=== PATIENT | male | born 1950 | race Caucasian/White ===

== ENCOUNTER 2020-06-25 15:58 | Emergency (ER) | payer MEDICARE, OTHER ==
[~2020-06-25] VITALS: Ht 190.5 cm; Wt 102.3 kg
[2020-06-25] MEDS ORDERED: AMLO-143 PO (16:40)
[2020-06-25] MEDS ORDERED: THERTAB52 PO (16:40)
[2020-06-25] MEDS ORDERED: ECOT81TA5 PO (16:40)
[2020-06-25] MEDS ORDERED: NS 500 ML IV ONE (16:55)
[2020-06-25 16:59] LABS: BASO % 0.3 % (0.0-1.0); EOS # 0.2 10^3/uL (0.0-0.5); HEMATOCRIT 39.3 % (42.0-52.0); HEMOGLOBIN 13.1 g/dl (13.5-17.5); LYMPH % 6.5 % (24.0-44.0); MEAN CORPUSCULAR HEMOGLOBIN 32.1 pg (27.0-33.0); MEAN CORPUSCULAR HGB CONC 33.3 g/dl (32.0-36.5); MEAN CORPUSCULAR VOLUME 96.3 fl (80.0-96.0); MONO # 1.6 10^3/uL (0.0-0.8); NEUTROPHILS # 12.7 10^3/uL (1.5-8.5); NEUTROPHILS % 81.6 % (36.0-66.0); PLATELET COUNT, AUTOMATED 297 10^3/uL (150-450); RED BLOOD COUNT 4.08 10^6/uL (4.30-6.10)
--- NOTE | 2020-06-25 17:12 | REP ---
INDICATION: DYSPNEA/COUGH. COMPARISON: No comparison chest x-ray. TECHNIQUE: Portable upright AP chest radiograph. FINDINGS: The lungs are symmetrically aerated and clear. The pleural angles are sharp. Heart size is borderline. The aorta is somewhat tortuous. Pulmonary vasculature is not increased. Monitoring electrodes are seen. No acute bony abnormality is seen.. IMPRESSION: No active disease. <Electronically signed by Be Foley > 06/25/20 [id number]
[2020-06-25 17:29] LABS: BLOOD UREA NITROGEN 13 MG/DL (7-18); CALCIUM LEVEL 8.7 MG/DL (8.8-10.2); CARBON DIOXIDE LEVEL 27 MEQ/L (21-32); CHLORIDE LEVEL 111 MEQ/L (98-107); CK-MB VALUE MASS 2.6 NG/ML (<3.6); CPK CREATINE PHOSPHOKINASE 201 U/L (39-308); CREATININE FOR GFR 1.06 MG/DL (0.70-1.30); GLOMERULAR FILTRATION RATE > 60.0 (>42); GLUCOSE, FASTING 109 MG/DL (70-100); MB/CK RELATIVE INDEX 1.29 (< OR =4); NT-PRO BNP 119 PG/ML (<125); SODIUM LEVEL 143 MEQ/L (136-145); TROPONIN I < 0.02 NG/ML (< 0.10)
[2020-06-25 17:37] LABS: WHITE BLOOD COUNT 15.6 10^3/uL (4.0-10.0)
[2020-06-25 18:34] VITALS: BP 146/84
--- NOTE | 2020-06-25 18:38 | REPVR ---
PROCEDURE INFORMATION: Exam: CT Head Without Contrast Exam date and time: 06/25/2020 6:00 PM Age: 69 years old Clinical indication: Syncope and collapse TECHNIQUE: Imaging protocol: Computed tomography of the head without contrast. Radiation optimization: All CT scans at this facility use at least one of these dose optimization techniques: automated exposure control; mA and/or kV adjustment per patient size (includes targeted exams where dose is matched to clinical indication); or iterative reconstruction. COMPARISON: No relevant prior studies available. FINDINGS: Brain: No acute intracranial hemorrhage, cerebral edema, or midline shift. Cerebral ventricles: No hydrocephalus. Bones/joints: No acute fracture. Paranasal sinuses: There is mild mucosal thickening noted within the paranasal sinuses. Mastoid air cells: The mastoid air cells are clear. Orbital cavity: Unremarkable as visualized. Soft tissues: Unremarkable. IMPRESSION: No acute intracranial abnormality. Electronically signed by: Donny Paris On 06/25/2020 18:37:53 PM
--- NOTE | 2020-06-25 20:42 | ECGEPIP ---
[facility] - ED Test Date: 2020-06-25 Pat Name: JAMA RASHID Department: Room: - Gender: Male [employer]: HITESH : 1950 Requested By: Jaiden Duggan Order Number: [id number] Reading MD: Rachel Mojica Measurements Intervals [place] Rate: 63 P: 17 VT: 182 QRS: -20 QRSD: 96 T: 5 QT: 406 QTc: 415 Interpretive Statements Normal sinus rhythm NSTTW abnormalities No prior Electronically Signed on 06-25-2020 20:42:06 EDT by Rachel Mojica
== END 2020-06-25 19:08 | disposition home or self-care (01) ==
LOC: EDBD 15:58 → M ED 15:58
DX: R55 Syncope and collapse (principal); T67.5XXA Heat exhaustion, unspecified, initial encounter; X50.9XXA Other and unspecified overexertion or strenuous movements or postures, initial encounter; F17.200 Nicotine dependence, unspecified, uncomplicated; I10 Essential (primary) hypertension; Y92.9 Unspecified place or not applicable; Y93.9 Activity, unspecified; Y99.9 Unspecified external cause status